=== PATIENT | female | born 1995 | race Caucasian/White ===

== ENCOUNTER 2021-05-14 11:19 | Day surgery (SDC) | payer MEDICAID ==
[2021-05-12 15:07] LABS: BASOPHILS # (AUTO) 0.1 X10'3 (0-0.2); BASOPHILS % (AUTO) 0.9 % (0-1); EOSINOPHILS # (AUTO) 0.1 X10'3 (0-0.9); EOSINOPHILS % (AUTO) 1.3 % (0-6); LYMPHOCYTES # (AUTO) 1.6 X10'3 (1.1-4.8); LYMPHOCYTES % (AUTO) 28.3 % (21-51); MEAN CORPUSCULAR HEMOGLOBIN 29.3 PG (27.0-31.0); MEAN CORPUSCULAR HGB CONC 33.9 g/dL (33.0-36.5); MEAN CORPUSCULAR VOLUME 86.5 FL (78-98); MEAN PLATELET VOLUME 7.1 FL (7.4-10.4); MONOCYTES # (AUTO) 0.4 X10'3 (0-0.9); MONOCYTES % (AUTO) 7.5 % (2-12); NEUTROPHILS # (AUTO) 3.4 X10'3 (1.8-7.7); PRE OP HEMATOCRIT 35.5 % (35.0-45.0); PRE OP PLATELET COUNT 253 X10'3 (140-440); RED BLOOD COUNT 4.11 X10'6 (4.20-5.60); RED CELL DISTRIBUTION WIDTH 14.3 % (11.5-14.5)
[2021-05-12 15:24] LABS: ALBUMIN 3.7 G/DL (3.4-5.0); ALBUMIN/GLOBULIN RATIO 1.1 (1.1-1.5); ALKALINE PHOSPHATASE 59 IU/L (46-116); BLOOD UREA NITROGEN 9 MG/DL (7-18); BUN/CREATININE RATIO 12.5 (6.6-38.0); CALCIUM 8.1 MG/DL (8.5-10.1); CHLORIDE 107 MMOL/L (99-107); CREATININE 0.72 MG/DL (0.40-0.90); PRE OP ALT 41 U/L (30-65); PRE OP ANION GAP 7 (8-16); PRE OP AST 17 U/L (10-37); PRE OP BILIRUB, TOTAL 0.3 MG/DL (0.0-1.0); PRE OP GLUCOSE 81 MG/DL (70-104); PRE OP SODIUM 140 MMOL/L (135-145); TOTAL CARBON DIOXIDE 25.9 MMOL/L (24-32); TOTAL PROTEIN 7.2 G/DL (6.4-8.2); eGFR > 90 ML/MIN
[2021-05-12 15:56] LABS: HCG SERUM QL NEGATIVE
[~2021-05-14] VITALS: Ht 152.4 cm; Wt 83.3 kg
[2021-05-14] VITALS (10 sets, daily range): BP systolic 109–148; BP diastolic 64–95
[~2021-05-14 11:19] MED LIST: HYDR-3965 PO; IBUP-1986 PO; INDOCYANINE GREEN 25 MG/10 ML VIAL IV ONE; ONDA-103 PO; cefazolin/dext.iso 2gm/50ml IV ONE; famotidine 20mg tablet PO ONE; ringers solution, lacted 1,000 ML IV SCH
[2021-05-14] MEDS ORDERED: BUPIVAcaine/PF 2.5mg/ml (0.25%) 10ml vial ONE ×2 (12:47→13:47)
[2021-05-14] MEDS ORDERED: LIDOcaine 1% 30ml preserv. free vial ONE (12:48)
[2021-05-14] MEDS ORDERED: sevoflurane 250ml liquid IH ONE (12:55)
[2021-05-14] MEDS ORDERED: midazolam 1 mg/ML 2ml injection ONE ×2 (13:05→14:20)
[2021-05-14] MEDS ORDERED: rocuronium 10mg/ml inj IV ONE (13:20)
[2021-05-14] MEDS ORDERED: fentaNYL /PF 50mcg/ml 5ml ampule ONE (13:20)
[2021-05-14] MEDS ORDERED: propofol inj 20 ML IV ONE (13:20)
[2021-05-14] MEDS ORDERED: LIDOcaine 2% (20mg/ml) 5ml vial ONE (13:20)
[2021-05-14] MEDS ORDERED: ondansetron/PF 4mg/2ml inj ONE (13:54)
[2021-05-14] MEDS ORDERED: dexamethasone sod phosphate 4mg/ml inj. ONE (13:54)
[2021-05-14] MEDS ORDERED: glycopyrrolate 0.2mg/ml inj ONE (13:56)
[2021-05-14] MEDS ORDERED: neostigmine methylsulfate 1 MG/ML 10ml vial ONE (13:56)
--- NOTE | 2021-05-14 14:05 | NUR ---
Received patient from OR, report received from md. Patient waking up, denise pain, v/s wnl, neurovascular checks intact, scd on, 20g piv to RUE, dressing to ABDOMEN CDI
[2021-05-14] MEDS ORDERED: meperidine/PF 50mg/ml syringe ONE (14:09)
[2021-05-14] MEDS ORDERED: ketorolac trometh. 30mg/ml inj. IV ONE (14:20)
[2021-05-14] MEDS ORDERED: morphine 2 MG/ML inj. syringe IV PRN (14:20)
[2021-05-14] MEDS ORDERED: proCHLORperazine 10 MG/2 ml inj IV PRN (14:20)
[2021-05-14] MEDS ORDERED: meperidine/PF 25mg/ml syringe IV PRN ×2 (14:20)
[2021-05-14] MEDS ORDERED: labetalol 20mg/4ml (5mg/ml) syringe IV PRN (14:20)
[2021-05-14] MEDS ORDERED: morphine 4 MG/ML inj SYRINge IV PRN (14:20)
[2021-05-14] MEDS ORDERED: hydrALAZINE 20mg/ml inj. IV PRN (14:20)
[2021-05-14] MEDS ORDERED: acetaminophen 1,000mg/100ml IV 100 ML IV PRN (14:20)
[2021-05-14] MEDS ORDERED: ringers solution, lacted 1,000 ML IV SCH (14:20)
[2021-05-14] MEDS ORDERED: ondansetron/PF 4mg/2ml inj IV PRN (14:20)
[2021-05-14] MEDS ORDERED: oxyCODONE/APAP 5-325mg tablet PO PRN ×2 (14:25)
--- NOTE | 2021-05-14 15:25 | NUR ---
ALL DISCHARGE CRITERIA HAS BEEN MET. VSS, PAIN AT A TOLERABLE LEVEL, VOIDING AND ABLE TO SAFELY AMBULATE AND TRANSFER SELF. IV TAKEN OUT WITHOUT ANY COMPLICATIONS. ALL DISCHARGE INSTRUCTIONS COVERED WITH PATIENT AND ALL QUESTIONS ANSWERED. PATIENT TAKEN OUT VIA WHEELCHAIR TO PERSONAL VEHICLE WHERE FAMILY/FRIEND DROVE PATIENT HOME
== END 2021-05-14 15:25 | disposition home or self-care (01) ==
LOC: PAS 11:19
PROVIDERS: ATTEND Surgery
DX: K81.1 Chronic cholecystitis (principal); Z98.890 Other specified postprocedural states; Z79.899 Other long term (current) drug therapy; F17.210 Nicotine dependence, cigarettes, uncomplicated; E66.01 Morbid (severe) obesity due to excess calories; Z68.35 Body mass index [BMI] 35.0-35.9, adult
CPT/HCPCS: 36415; 47563; 80053; 82948; 84703; 85025; J0131; J0690; J1100; J1885; J2175; J2250; J2405; J2704; J2710; J3010; J3490; J7030; J7120; S2900; Z7506; Z7508; Z7512; A4215; A4618; A7000

== ENCOUNTER 2023-08-31 08:56 | Outpatient (CLI) | payer MEDICAID ==
[~2023-08-31 08:56] MED LIST changes: -INDOCYANINE GREEN 25 MG/10 ML VIAL IV ONE; -cefazolin/dext.iso 2gm/50ml IV ONE; -famotidine 20mg tablet PO ONE; -ringers solution, lacted 1,000 ML IV SCH
== END 2023-08-31 23:59 | disposition home or self-care (01) ==
LOC: RAD 08:56
PROVIDERS: ATTEND Nurse Practitioner Family
DX: R93.89 Abnormal findings on diagnostic imaging of other specified body structures (principal); R10.2 Pelvic and perineal pain
CPT/HCPCS: 76856; 76872; 93976

== ENCOUNTER 2023-11-16 08:28 | Emergency (ER) | payer MEDICAID ==
[~2023-11-16] VITALS: Ht 154.9 cm; Wt 70.7 kg
[2023-11-16 08:44] VITALS: BP 112/68; PULSE 61; RESP 16; TEMP 98.2; O2SAT 100
== END 2023-11-16 13:22 | disposition left against medical advice (07) ==
LOC: ER 08:31
DX: R07.81 Pleurodynia (principal); R10.9 Unspecified abdominal pain; M54.9 Dorsalgia, unspecified; Z53.21 Procedure and treatment not carried out due to patient leaving prior to being seen by health care provider